=== PATIENT | male | born 1990 | race Caucasian/White ===

== ENCOUNTER 2016-10-31 08:39 | Emergency (ER) | payer OTHER ==
[~2016-10-31] VITALS: Ht 182.9 cm; Wt 76.4 kg
[2016-10-31 08:49] VITALS: BP 116/64; PULSE 77; TEMP 97.7
[2016-10-31] MEDS ORDERED: BENADRYL25 M2 PO (09:14)
[2016-10-31] MEDS ORDERED: PEPCID 20MG TAB20 MG PO (09:14)
== END 2016-10-31 10:04 | disposition home or self-care (01) ==
LOC: COL.ER 08:39
DX: L23.5 Allergic contact dermatitis due to other chemical products (principal)
CPT/HCPCS: J7512

== ENCOUNTER 2016-12-31 09:25 | Emergency (ER) | payer OTHER ==
[~2016-12-31] VITALS: Ht 182.9 cm; Wt 51.4 kg
[~2016-12-31 09:25] MED LIST: BENADRYL25 M2 PO; PEPCID 20MG TAB20 MG PO
[2016-12-31 09:29] VITALS: BP 127/73; PULSE 75; TEMP 97.4
== END 2016-12-31 10:25 | disposition home or self-care (01) ==
LOC: COL.ER 09:25
DX: L23.5 Allergic contact dermatitis due to other chemical products (principal)